=== PATIENT | female | born 1950 | race Caucasian/White ===

== ENCOUNTER 2022-01-06 15:22 | Inpatient (IN) ==
[2022-01-06] MEDS: 0.9 % Sodium Chloride 1,000 ML IVC SCH ×2 (16:38→18:16)
[2022-01-06 16:51] LABS: Basophils % 0.5 %; Eosinophils # 0.1 K/mcL (0.0-0.6); Eosinophils % 1.4 %; Hematocrit 38.6 % (35.3-44.9); Hemoglobin 13.5 g/dL (11.5-15.4); Immature Granulocytes % 0.2 % (0-4); Lymphocytes # 1.4 K/mcL (0.6-4.6); Lymphocytes % 24.2 %; Mean Corpuscular Hemoglobin 28.9 pg (28.0-33.3); Mean Corpuscular Volume 82.7 fL (83.0-100.0); Mean Platelet Volume 11.5 fL (9.4-12.4); Monocytes # 0.4 K/mcL (0.0-1.3); Monocytes % 6.3 %; Platelet Count 191 K/mcL (140-400); Red Blood Count 4.67 M/mcL (3.82-4.97); Red Cell Distribution Width 12.9 % (11.5-14.5); Segmented Neutrophils % 67.4 %; White Blood Count 5.9 K/mcL (4.3-11.1)
[2022-01-06 17:08] LABS: VBG HCO3 23 mEq/L (21-27); VBG PCO2 35 mmHg (41-51); VBG PH 7.43 pH Units (7.32-7.42); VBG PO2 163 mmHg (25-50)
[2022-01-06 17:13] LABS: Bacteria,Urine Few per hpf (None-Few); Bilirubin,Urine Negative (Negative); Blood,Urine Small (Negative); Clarity,Urine Clear (Clear); Color,Urine Light-Yellow (Yellow); Glucose,Urine (UA) >=1000 mg/dL (Normal); Ketones,Urine Negative (Negative); Leukocyte Esterase,Urine Negative (Negative); Nitrite,Urine Negative (Negative); PH,Urine 5.5 pH Units (5.0-8.0); Protein,Urine 100 mg/dL (Neg-Trace); Squamous Epithelial Cell,Urine Few per hpf (None-Few); Urobilinogen,Urine Normal (Normal); WBC,Urine 0-3 per hpf (0-3)
[2022-01-06 17:55] LABS: Alanine Aminotransferase 18 Units/L (7-52); Albumin 3.9 g/dL (3.5-5.7); Albumin/Globulin Ratio 1.3 (1.1-2.2); Alkaline Phosphatase 106 Units/L (34-104); Aspartate Amino Transferase 23 Units/L (13-39); BUN/Creatinine Ratio 22 (6-26); Bilirubin,Total 0.5 mg/dL (0.3-1.0); Blood Urea Nitrogen 29 mg/dL (8-23); Calcium 9.2 mg/dL (8.6-10.3); Carbon Dioxide 22 mEq/L (23-29); Chloride 100 mEq/L (98-107); Globulin 2.9 g/dL (2.4-3.5); Glucose 546 mg/dL (70-105); Magnesium 1.4 mg/dL (1.6-2.6); Osmolality,Calculated 305 (280-300); Potassium 4.7 mEq/L (3.5-5.1); Sodium 132 mEq/L (136-145); Total Protein 6.8 g/dL (6.4-8.9); Troponin I < 0.03 ng/mL (< 0.04); eGFR For African Americans 47 (> 60); eGFR For Non-African Americans 39 (> 60)
[2022-01-06] MEDS ORDERED: Insulin Human Regular 5 UNIT in 0.9 % Sodium Chloride 10 ML IV ONE (17:58)
[2022-01-06] MEDS ORDERED: Naloxone 0.4 MG/ML INJ IVP PRN (19:24)
[2022-01-06] MEDS ORDERED: D5% in Water 1,000 ML IVC PRN (19:29)
[2022-01-06] MEDS ORDERED: *HR* Dextrose 50 % in Water (Syg) 50 ML SYRINGE IVP PRN (19:29)
[2022-01-06] MEDS ORDERED: Dextrose Gel 15 GM/37.5 ML TUBE PO PRN ×2 (19:29)
[2022-01-06] MEDS: Apixaban 5 MG TABLET PO SCH (22:51)
[2022-01-06] MEDS: Insulin DETEMIR 100 UNIT/ML X5UNITS SUBQ SCH (22:51)
[2022-01-06] MEDS: Insulin LISPRO 300 UNITS/3 ML VIAL SUBQ SCH (22:52)
[2022-01-07 04:44] LABS: White Blood Count 4.9 K/mcL (4.3-11.1)
[2022-01-07 04:45] LABS: Basophils % 0.4 %; Eosinophils # 0.1 K/mcL (0.0-0.6); Eosinophils % 2.2 %; Hematocrit 36.3 % (35.3-44.9); Hemoglobin 12.6 g/dL (11.5-15.4); Immature Granulocytes % 0.2 % (0-4); Lymphocytes # 1.7 K/mcL (0.6-4.6); Lymphocytes % 33.7 %; Mean Corpuscular HGB Conc 34.7 g/dL (31.6-35.5); Mean Corpuscular Hemoglobin 29.2 pg (28.0-33.3); Mean Platelet Volume 11.2 fL (9.4-12.4); Monocytes # 0.3 K/mcL (0.0-1.3); Monocytes % 6.3 %; Neutrophils # 2.8 K/mcL (1.6-8.9); Platelet Count 164 K/mcL (140-400); Red Blood Count 4.32 M/mcL (3.82-4.97); Red Cell Distribution Width 12.8 % (11.5-14.5); Segmented Neutrophils % 57.2 %
[2022-01-07 04:53] LABS: Albumin 3.5 g/dL (3.5-5.7); Albumin/Globulin Ratio 1.5 (1.1-2.2); Bilirubin,Total 0.5 mg/dL (0.3-1.0); Calcium 8.7 mg/dL (8.6-10.3); Globulin 2.3 g/dL (2.4-3.5); Magnesium 1.8 mg/dL (1.6-2.6); Phosphorous 3.1 mg/dL (2.7-4.5); Potassium 4.4 mEq/L (3.5-5.1); Total Protein 5.8 g/dL (6.4-8.9)
[2022-01-07] MEDS: Ondansetron ODT 4 MG TAB.RAPDIS SL PRN (07:29)
[2022-01-07] MEDS: Insulin LISPRO 300 UNITS/3 ML VIAL SUBQ SCH ×4 (07:30→20:52)
[2022-01-07] MEDS: Insulin DETEMIR 100 UNIT/ML X5UNITS SUBQ SCH ×2 (07:31→20:52)
[2022-01-07] MEDS ORDERED: lisinopriL 5 MG TABLET PO SCH (09:00)
[2022-01-07] MEDS: lisinopriL 10 MG TABLET PO SCH (09:10)
[2022-01-07] MEDS: Anastrozole 1 MG TABLET PO SCH (09:11)
[2022-01-07] MEDS: Apixaban 5 MG TABLET PO SCH ×2 (09:11→20:37)
[2022-01-07] MEDS: Acetaminophen 325 MG TABLET PO PRN (16:56)
[2022-01-07] MEDS: Melatonin 3 MG TABLET PO PRN (20:37)
[2022-01-08] MEDS: Ondansetron ODT 4 MG TAB.RAPDIS SL PRN (00:46)
[2022-01-08] MEDS: Acetaminophen 325 MG TABLET PO PRN ×2 (02:38→20:36)
[2022-01-08] MEDS: Anastrozole 1 MG TABLET PO SCH (09:19)
[2022-01-08] MEDS: lisinopriL 10 MG TABLET PO SCH (09:19)
[2022-01-08] MEDS: amLODIPine 5 MG TABLET PO SCH (09:20)
[2022-01-08] MEDS: Insulin DETEMIR 100 UNIT/ML X5UNITS SUBQ SCH ×2 (09:20→20:36)
[2022-01-08] MEDS: Apixaban 5 MG TABLET PO SCH ×2 (09:20→20:35)
[2022-01-08] MEDS: Insulin LISPRO 300 UNITS/3 ML VIAL SUBQ SCH ×4 (09:21→20:36)
[2022-01-08] MEDS: Melatonin 3 MG TABLET PO PRN (20:35)
[2022-01-09 07:17] LABS: Basophils % 0.4 %; Eosinophils # 0.1 K/mcL (0.0-0.6); Eosinophils % 1.7 %; Hematocrit 40.8 % (35.3-44.9); Hemoglobin 13.9 g/dL (11.5-15.4); Immature Granulocytes % 0.6 % (0-4); Lymphocytes # 1.6 K/mcL (0.6-4.6); Mean Corpuscular HGB Conc 34.1 g/dL (31.6-35.5); Mean Corpuscular Hemoglobin 28.9 pg (28.0-33.3); Mean Corpuscular Volume 84.8 fL (83.0-100.0); Mean Platelet Volume 11.3 fL (9.4-12.4); Monocytes # 0.3 K/mcL (0.0-1.3); Neutrophils # 3.1 K/mcL (1.6-8.9); Platelet Count 191 K/mcL (140-400); Red Blood Count 4.81 M/mcL (3.82-4.97); Segmented Neutrophils % 60.3 %; White Blood Count 5.2 K/mcL (4.3-11.1)
[2022-01-09] MEDS: Insulin LISPRO 300 UNITS/3 ML VIAL SUBQ SCH ×4 (08:35→21:16)
[2022-01-09] MEDS: Anastrozole 1 MG TABLET PO SCH (08:36)
[2022-01-09] MEDS: amLODIPine 5 MG TABLET PO SCH (08:36)
[2022-01-09] MEDS: Apixaban 5 MG TABLET PO SCH ×2 (08:36→21:15)
[2022-01-09] MEDS: lisinopriL 10 MG TABLET PO SCH (08:40)
[2022-01-09 09:02] LABS: Calcium 9.2 mg/dL (8.6-10.3); Potassium 4.2 mEq/L (3.5-5.1)
[2022-01-09] MEDS: Insulin DETEMIR 100 UNIT/ML X5UNITS SUBQ SCH ×2 (09:28→21:15)
[2022-01-09] MEDS: Acetaminophen 325 MG TABLET PO PRN ×2 (10:36→21:14)
[2022-01-09 11:12] LABS: Estimated Average Glucose 318 mg/dl; Hemoglobin A1C 12.7 %
[2022-01-09] MEDS ORDERED: QUEtiapine Fumarate 25 MG TABLET PO PRN (11:58)
[2022-01-09] MEDS: Melatonin 3 MG TABLET PO PRN (21:15)
[2022-01-09] MEDS: QUEtiapine Fumarate 25 MG TABLET PO SCH (21:15)
[2022-01-10] MEDS: amLODIPine 5 MG TABLET PO SCH (09:15)
[2022-01-10] MEDS: Anastrozole 1 MG TABLET PO SCH (09:16)
[2022-01-10] MEDS: Apixaban 5 MG TABLET PO SCH ×2 (09:16→20:21)
[2022-01-10] MEDS: Insulin LISPRO 300 UNITS/3 ML VIAL SUBQ SCH ×4 (09:17→20:23)
[2022-01-10] MEDS: lisinopriL 10 MG TABLET PO SCH (09:18)
[2022-01-10] MEDS: Insulin DETEMIR 100 UNIT/ML X5UNITS SUBQ SCH ×2 (09:30→20:22)
[2022-01-10] MEDS: Acetaminophen 325 MG TABLET PO PRN ×3 (10:51→22:18)
[2022-01-10] MEDS: Melatonin 3 MG TABLET PO PRN (20:21)
[2022-01-10] MEDS: Ondansetron ODT 4 MG TAB.RAPDIS SL PRN (20:21)
[2022-01-10] MEDS: QUEtiapine Fumarate 25 MG TABLET PO SCH (20:22)
[2022-01-11] MEDS: Insulin LISPRO 300 UNITS/3 ML VIAL SUBQ SCH ×4 (07:22→19:58)
[2022-01-11] MEDS: amLODIPine 5 MG TABLET PO SCH (08:21)
[2022-01-11] MEDS: lisinopriL 10 MG TABLET PO SCH (08:21)
[2022-01-11] MEDS: Apixaban 5 MG TABLET PO SCH ×2 (08:22→19:59)
[2022-01-11] MEDS: Insulin DETEMIR 100 UNIT/ML X5UNITS SUBQ SCH ×2 (08:22→19:58)
[2022-01-11] MEDS: Anastrozole 1 MG TABLET PO SCH (08:22)
[2022-01-11] MEDS: Acetaminophen 325 MG TABLET PO PRN ×2 (15:15→22:14)
[2022-01-11] MEDS: Melatonin 3 MG TABLET PO PRN (19:59)
[2022-01-11] MEDS: QUEtiapine Fumarate 25 MG TABLET PO SCH (19:59)
[2022-01-12] MEDS: lisinopriL 10 MG TABLET PO SCH (08:14)
[2022-01-12] MEDS: Anastrozole 1 MG TABLET PO SCH (08:15)
[2022-01-12] MEDS: amLODIPine 5 MG TABLET PO SCH (08:15)
[2022-01-12] MEDS: Apixaban 5 MG TABLET PO SCH ×2 (08:15→20:18)
[2022-01-12] MEDS: Insulin LISPRO 300 UNITS/3 ML VIAL SUBQ SCH ×4 (08:25→20:19)
[2022-01-12] MEDS: Ondansetron ODT 4 MG TAB.RAPDIS SL PRN ×2 (08:47→16:27)
[2022-01-12] MEDS: Insulin DETEMIR 100 UNIT/ML X5UNITS SUBQ SCH ×2 (09:31→20:19)
[2022-01-12] MEDS: Acetaminophen 325 MG TABLET PO PRN ×2 (14:11→22:49)
[2022-01-12] MEDS ORDERED: Pfizer Covid-19 Vaccine 30MCG/0.3ML IM ONE (15:27)
[2022-01-12] MEDS: Melatonin 3 MG TABLET PO PRN (20:18)
[2022-01-12] MEDS: QUEtiapine Fumarate 25 MG TABLET PO SCH (20:18)
[2022-01-13 02:41] LABS: Basophils % 0.6 %; Eosinophils # 0.1 K/mcL (0.0-0.6); Eosinophils % 1.3 %; Hematocrit 36.1 % (35.3-44.9); Hemoglobin 12.4 g/dL (11.5-15.4); Immature Granulocytes % 0.3 % (0-4); Lymphocytes # 1.4 K/mcL (0.6-4.6); Lymphocytes % 22.6 %; Mean Corpuscular HGB Conc 34.3 g/dL (31.6-35.5); Mean Corpuscular Hemoglobin 29.4 pg (28.0-33.3); Mean Corpuscular Volume 85.5 fL (83.0-100.0); Monocytes # 0.4 K/mcL (0.0-1.3); Monocytes % 6.2 %; Neutrophils # 4.3 K/mcL (1.6-8.9); Platelet Count 172 K/mcL (140-400); Red Blood Count 4.22 M/mcL (3.82-4.97); Red Cell Distribution Width 13.2 % (11.5-14.5); White Blood Count 6.3 K/mcL (4.3-11.1)
[2022-01-13 02:53] LABS: Calcium 8.6 mg/dL (8.6-10.3); Potassium 3.8 mEq/L (3.5-5.1)
[2022-01-13 04:51] LABS: Influenza A PCR Negative (Negative); Influenza B PCR Negative (Negative); Resp. Syncytial Virus PCR Negative (Negative)
[2022-01-13 05:05] LABS: SARS-CoV-2 by PCR (In House) Negative (Negative)
[2022-01-13 06:58] VITALS: O2SAT 100
[2022-01-13] MEDS: Ondansetron ODT 4 MG TAB.RAPDIS SL PRN (07:00)
[2022-01-13] MEDS: lisinopriL 10 MG TABLET PO SCH (07:24)
[2022-01-13] MEDS: amLODIPine 5 MG TABLET PO SCH (07:24)
[2022-01-13] MEDS: Apixaban 5 MG TABLET PO SCH (07:24)
[2022-01-13] MEDS: Anastrozole 1 MG TABLET PO SCH (07:25)
[2022-01-13] MEDS: Acetaminophen 325 MG TABLET PO PRN (07:29)
[2022-01-13] MEDS: Insulin LISPRO 300 UNITS/3 ML VIAL SUBQ SCH (07:30)
[2022-01-13] MEDS: Insulin DETEMIR 100 UNIT/ML X5UNITS SUBQ SCH (07:30)
[2022-01-13 11:14] VITALS: BP 162/76; PULSE 97; TEMP 99
== END 2022-01-13 11:43 | DRG 469 ==
LOC: 3BNU 15:22 → EMEROOARM 15:22 → SUATTDRO 19:33 → 3BNU 19:57 → SUATTDRO 01-07 16:28
PROVIDERS: ADMIT Family Medicine; ATTEND Registered Nurse